=== PATIENT | female | born 1990 ===

== ENCOUNTER → 2018-11-07 21:14 | Outpatient (REF) | payer OTHER, SELFPAY | LOC: LAB 21:14 | PROVIDERS: Visit Provider Naturopath | DX: N39.0 Urinary tract infection, site not specified (principal) | CPT/HCPCS: 87077; 87086; 87186 ==

== ENCOUNTER → 2018-12-19 21:12 | Outpatient (REF) | payer OTHER, SELFPAY ==
[2018-12-22 14:15] LABS: Mitogen-NIL > 10.00 IU/mL; NIL 0.01 IU/mL; QuantiFERON TB NEGATIVE (Negative); TB1-NIL < 0.01 IU/mL; TB2-NIL < 0.01 IU/mL
== END ==
LOC: LAB 21:12
PROVIDERS: Visit Provider Naturopath
DX: Z11.1 Encounter for screening for respiratory tuberculosis (principal); Z20.1 Contact with and (suspected) exposure to tuberculosis
CPT/HCPCS: 36415; 86480